=== PATIENT | female | born 1950 | race Caucasian/White ===

== ENCOUNTER 2017-05-12 11:11 | Emergency (ER) | payer MEDICAID ==
[~2017-05-12] VITALS: Ht 167.6 cm; Wt 77.1 kg
[~2017-05-12 11:11] MED LIST: CEPHALEXIN500 MG ORAL; IBUPROFEN400 MG ORAL
[2017-05-12] MEDS ORDERED: Morphine Sulfate 4mg/ml Inj IM ONE (12:30)
[2017-05-12] MEDS ORDERED: IBUPROFEN600 MG ORAL (12:51)
[2017-05-12] MEDS ORDERED: KEFLEX500 MG ORAL (12:51)
[2017-05-12 13:30] VITALS: BP 135/77
--- NOTE | 2017-05-12 13:54 | Emergency Room Report ---
History of Present Illness General Chief Complaint: Pain Source: Patient Present Illness HPI Patient had recent surgery on the left knee She's not quite sure of the exact procedure however there was an incision And the patient had multiple booker in place Patient saw her surgeon yesterday had booker removed While walking in the grocery she noticed increased pain and tightening of her calf and swelling of her knee denies any fall or trauma Denies any pelvic pain or upper leg discomfort denies and shortness of breath Patient does have increased pain in that knee and the lower leg 09/10 pressure- like Allergies: Coded Allergies: No Known Allergies (Unverified , 06/12/16) Patient History Past Medical History: see triage record Pertinent Family History: none Reviewed Nursing Documentation: PMH: Agreed, PSxH: Agreed Nursing Documentation-PMH Hx Hypertension: Yes Review of Systems All Other Systems: negative except mentioned in HPI Physical Exam Vital Signs Date Time Temp Pulse Resp B/P (MAP) Pulse Ox O2 Delivery O2 Flow Rate FiO2 05/12/17 11:17 98.2 104 18 132/69 99 Room Air Sp02 EP Interpretation: reviewed, normal General Appearance: well appearing, no apparent distress Head: normocephalic, atraumatic Eyes: bilateral eye PERRL, bilateral eye EOMI ENT: hearing grossly normal, normal pharynx, TMs + canals normal, uvula midline Neck: full range of motion, supple, no meningismus, no bony tend Respiratory: lungs clear, normal breath sounds, no rhonchi, no respiratory distress, no retraction, no accessory muscle use Cardiovascular #1: normal peripheral pulses, regular rate, rhythm, no gallop, no JVD, no murmur Gastrointestinal: normal bowel sounds, non tender, soft, no mass, no organomegaly, non-distended, no guarding, no hernia, no pulsatile mass, no rebound Genitourinary: no CVA tenderness Musculoskeletal: other - There is some swelling on the left knee compared to her right, this does involve the cath as well, patient is neurovascularly intact , there are Steri-Strips in place in the midline above the knee to down below the knee very mild erythema is noted no other fluctuance, patient is mildly tender on palpation posteriorly Neurologic: oriented x3, responsive, cross country coach III-XII nml as tested, sensory intact Psychiatric: mood/affect normal Skin: other - as above Lymphatic: normal inspection, no adenopathy Medical Decision Making Diagnostic Impression: Primary Impression: knee pain Additional Impression: bakers cyst ER Course Mobile differentials including but not limited to infectious, venous pathology entertained Ultrasound shows questionable cyst raising question of possible Mathis's cyst no obvious DVT otherwise Patient is given reassurance with the findings has done better with pain control I did initiate antibiotics for the possibility of early infection And the patient will see her specialist tomorrow , CT/MRI/US Diagnostic Results CT/MRI/US Diagnostic Results : Impression Venous ultrasound: No DVT, complex cyst Last Vital Signs Date Time Temp Pulse Resp B/P (MAP) Pulse Ox O2 Delivery O2 Flow Rate FiO2 05/12/17 13:30 98.2 87 17 135/77 100 Room Air Status: improved Disposition: HOME, SELF-CARE Condition: Improved Scripts Cephalexin* (KEFLEX*) 500 Mg Capsule 500 MG ORAL Q6H, #28 CAP 0 Refills Prov: BAKARI GOLDSTEIN D.O. 05/12/17 Ibuprofen* (MOTRIN*) 600 Mg Tablet 600 MG ORAL Q8H Y for For Pain, #20 TAB 0 Refills Prov: BAKARI GOLDSTEIN D.O. 05/12/17 Referrals: NOT CHOSEN IPA/MD,REFERRING Patient Instructions: Knee Pain, [id number], Mathis Cyst Additional Instructions: Patient is provided with the discharge instructions notified to follow up with primary doctor in the next 2-3 days otherwise return to the er with any worsening symptoms. Please note that this report is being documented using [employer] technology. This can lead to erroneous entry secondary to incorrect interpretation by the dictating instrument. BAKARI GOLDSTEIN D.O. May 12, 2017 13:54
--- NOTE | 2017-05-13 14:09 | Diagnostic Imaging Report ---
APPROVED REPORT CPT Code: 35007 Present Symptoms Comments: Post Knee Op LEFT LEG: Venous imaging reveals a patent deep venous system. There is no evidence of thrombus within the femoral, popliteal or tibial segments. The greater saphenous vein is also within normal limits. Doppler indicates normal spontaneous flow within these segments. Incidental finding: Cystic structure noted in the left popliteal area measuring (2.9 cm x 0.7 cm).
--- NOTE | 2017-05-13 14:09 | Diagnostic Imaging Report ---
APPROVED REPORT CPT Code: 28493 Present Symptoms Comments: Post Knee Op LEFT LEG: Venous imaging reveals a patent deep venous system. There is no evidence of thrombus within the femoral, popliteal or tibial segments. The greater saphenous vein is also within normal limits. Doppler indicates normal spontaneous flow within these segments. Incidental finding: Cystic structure noted in the left popliteal area measuring (2.9 cm x 0.7 cm).
--- NOTE | 2017-05-13 14:09 | Diagnostic Imaging Report ---
APPROVED REPORT CPT Code: 53330 Present Symptoms Comments: Post Knee Op LEFT LEG: Venous imaging reveals a patent deep venous system. There is no evidence of thrombus within the femoral, popliteal or tibial segments. The greater saphenous vein is also within normal limits. Doppler indicates normal spontaneous flow within these segments. Incidental finding: Cystic structure noted in the left popliteal area measuring (2.9 cm x 0.7 cm).
== END 2017-05-12 13:30 | disposition home or self-care (01) ==
LOC: EMR 11:39
DX: M25.562 Pain in left knee (principal); M71.22 Synovial cyst of popliteal space [Baker], left knee; I10 Essential (primary) hypertension
CPT/HCPCS: 93971; 96372; 99284; J2270

== ENCOUNTER 2017-05-19 21:13 | Emergency (ER) | payer MEDICAID ==
[~2017-05-19] VITALS: Ht 167.6 cm; Wt 77.1 kg
[~2017-05-19 21:13] MED LIST changes: +IBUPROFEN600 MG ORAL; +KEFLEX500 MG ORAL
[2017-05-19] MEDS ORDERED: Bacitracin Oint UD TOPIC ONE (23:15)
[2017-05-19] MEDS ORDERED: IBUPROFEN600 MG ORAL (23:30)
[2017-05-19] MEDS ORDERED: KEFLEX500 MG ORAL (23:30)
--- NOTE | 2017-05-19 23:30 | Emergency Room Report ---
History of Present Illness General Chief Complaint: Lower Extremity Injury Source: Patient Present Illness HPI This is a 66-year-old female with recent left knee replacement done last month. She was here on the for cellulitis at the booker were removed. She received antibiotics and ibuprofen. She was doing well until tonight. She was walking at home and slipped and fell and landed on her left knee. The skin open up at the distal end. He was scant bleeding. Patient was able to walk 3 blocks here. Pain is 6/10. Worse with walking. No nausea no vomiting. No other injury. No syncopal events. Allergies: Coded Allergies: No Known Allergies (Unverified , 06/12/16) Patient History Past Medical History: see triage record, old chart reviewed Past Surgical History: other Pertinent Family History: none Social History: Denies: smoking Now: No Immunizations: other Reviewed Nursing Documentation: PMH: Agreed, PSxH: Agreed Nursing Documentation-PMH Hx Hypertension: Yes Review of Systems Eye: Denies: eye pain, blurred vision ENT: Denies: ear pain, nose congestion, throat swelling Respiratory: Denies: cough, shortness of breath Cardiovascular: Denies: chest pain, palpitations Gastrointestinal: Denies: abdominal pain, diarrhea, nausea, vomiting Musculoskeletal: Reports: joint pain, Denies: back pain Skin: Denies: rash Neurological: Denies: headache, numbness Endocrine: Denies: increased thirst, increased urine Hematologic/Lymphatic: Denies: easy bruising All Other Systems: negative except mentioned in HPI Physical Exam Vital Signs Date Time Temp Pulse Resp B/P (MAP) Pulse Ox O2 Delivery O2 Flow Rate FiO2 05/19/17 21:48 98.8 92 16 148/83 95 Room Air vitals normal Sp02 EP Interpretation: reviewed, normal General Appearance: well appearing, no apparent distress, alert Head: normocephalic, atraumatic Eyes: bilateral eye PERRL, bilateral eye EOMI ENT: hearing grossly normal, normal pharynx Neck: full range of motion, supple, no meningismus Respiratory: chest non-tender, lungs clear, normal breath sounds Cardiovascular #1: regular rate, rhythm, no murmur Gastrointestinal: normal bowel sounds, non tender, no mass, no organomegaly, no bruit, non-distended Musculoskeletal: back normal, gait/station normal, normal range of motion, other - Left knee: There is wound dehiscence of 2 cm on the inferior aspect. Can't bleeding. No redness. Full range of motion. Psychiatric: mood/affect normal Skin: warm/dry Procedures Laceration/Wound Repair Laceration/Wound Repair : Consent: Verbal Wound Location: lower extremity Wound's Depth, Shape: linear Wound Length (cm): 2 Wound Explored: clean Irrigated w/ Saline (ccs): 500 Betadine Prep?: Yes Anesthesia: 1% Lidocaine Volume Anesthetic (ccs): 2 Wound Repaired With: sutures Suture Size/Type: 3:0, proline Number of Sutures: 3 Sterile Dressing Applied?: Yes Patient Tolerated: Well Complications: None Medical Decision Making Diagnostic Impression: Primary Impression: Laceration ER Course Patient with a laceration secondary to wound dehiscence from a fall. No evidence of infection. We'll discharge home. Other X-Ray Diagnostic Results Other X-Ray Diagnostic Results : X-Ray ordered: Left knee x-rays # of Views/Limited Vs Complete: 3 View Indication: Pain EP Interpretation: Yes Interpretation: no dislocation, no soft tissue swelling, no fractures Impression: No acute disease Electronically Signed by: Allyssa Meza MD Last Vital Signs Date Time Temp Pulse Resp B/P (MAP) Pulse Ox O2 Delivery O2 Flow Rate FiO2 05/19/17 21:48 98.8 92 16 148/83 95 Room Air Status: improved Disposition: HOME, SELF-CARE Condition: Stable Scripts Ibuprofen* (MOTRIN*) 600 Mg Tablet 600 MG ORAL Q8H Y for For Pain, #30 TAB 0 Refills Prov: ALLYSSA MEZA M.D. 05/19/17 Cephalexin* (KEFLEX*) 500 Mg Capsule 500 MG ORAL TID, #21 CAP 0 Refills Prov: ALLYSSA MEZA M.D. 05/19/17 Additional Instructions: Followup your orthopedic doctor in 7-14 days for suture out in 14 days. Return if symptom worsen. ALLYSSA MEZA M.D. May 19, 2017 23:30
[2017-05-19 23:36] VITALS: BP 148/83
--- NOTE | 2017-05-20 09:59 | Diagnostic Imaging Report ---
Indications: TRAUMA, status post fall Technique: Three views of the left knee Comparison: None Findings: No acute fractures. No dislocations. Joint spaces are preserved. No radiopaque foreign body. Normal mineralization. There is question with a small suprapatellar effusion. There is a medial hemiarthroplasty prosthesis which appears well aligned Impression: Possible small effusion. Correlate with clinical findings No acute process otherwise
== END 2017-05-19 23:36 | disposition home or self-care (01) ==
LOC: EMR 22:05
DX: S81.012A Laceration without foreign body, left knee, initial encounter (principal); T81.30XA Disruption of wound, unspecified, initial encounter; W01.0XXA Fall on same level from slipping, tripping and stumbling without subsequent striking against object, initial encounter; Y92.019 Unspecified place in single-family (private) house as the place of occurrence of the external cause; I10 Essential (primary) hypertension
CPT/HCPCS: 12001; 73564; 99284; Z7502

== ENCOUNTER 2017-06-10 15:12 | Emergency (ER) | payer MEDICARE, MEDICAID ==
[~2017-06-10] VITALS: Ht 167.6 cm; Wt 83.0 kg
[2017-06-10 15:42] VITALS: BP 172/102
[2017-06-10] MEDS ORDERED: Bacitracin Oint UD TOPIC ONE (16:00)
[2017-06-10 16:13] VITALS: BP 172/102
--- NOTE | 2017-06-10 16:30 | Emergency Room Report ---
History of Present Illness General Chief Complaint: Wound Recheck/Suture Removal Source: Patient Present Illness [facility] The patient is a 66-year-old female presenting for suture removal. She had a total knee replacement in April and then presented to this emergency department in May for wound opening of the surgical sites. 3 sutures were placed. Patient was also given antibiotics which she has taken. She denies any complications. Pain to the area is a 5/10 dull ache and is better with Tylenol and Motrin. She states that she does not want to followup with her surgeon. She denies any other complaints including nausea, vomiting, fever, chills, rash, wound discharge or bleeding, numbness or tingling Allergies: Coded Allergies: No Known Allergies (Unverified , 06/12/16) Patient History Past Medical History: see triage record Pertinent Family History: none Reviewed Nursing Documentation: PMH: Agreed, PSxH: Agreed Nursing Documentation-PMH Past Medical History: No History, Except For Hx Cardiac Problems: No - head injury Hx Hypertension: Yes Review of Systems All Other Systems: negative except mentioned in HPI Physical Exam Vital Signs Date Time Temp Pulse Resp B/P (MAP) Pulse Ox O2 Delivery O2 Flow Rate FiO2 06/10/17 15:23 98.4 92 18 172/102 98 Room Air Sp02 EP Interpretation: reviewed, normal General Appearance: no apparent distress, alert, GCS 15, non-toxic Head: normocephalic, atraumatic Eyes: bilateral eye normal inspection, bilateral eye PERRL ENT: hearing grossly normal, normal pharynx, no angioedema, normal voice Neck: full range of motion, supple/symm/no masses Respiratory: no accessory muscle use, speaking full sentences Cardiovascular #1: no edema Musculoskeletal: no calf tenderness, swelling - L knee, tender - L anterior knee Neurologic: alert, oriented x3, responsive, motor strength/tone normal, sensory intact, speech normal Psychiatric: judgement/insight normal, memory normal, mood/affect normal, no suicidal/homicidal ideation Skin: laceration - L knee midline surgical scar is well healed. Medical Decision Making PA Attestation Dr. Pathak is my supervising physician. Patient management was discussed with my supervising physician Diagnostic Impression: Primary Impression: Visit for wound check Additional Impression: Encounter for removal of sutures ER Course The patient is a 66-year-old female presenting for suture removal Differential diagnosis considered: Wound infection, dehiscence, nonhealing wound , cellulitis, abscess Physical exam: Afebrile. No apparent distress Left knee has a midline surgical incision which is well-healed. No surrounding erythema. Well approximated. No erythema Suture removal: 3 simple interrupted sutures were removed without complication. No bleeding or discharge. Wound is well approximated. No surrounding erythema. Bacitracin was applied with dressing. She'll be discharged home and should follow up with her surgeon as soon as possible. ER precautions are given Last Vital Signs Date Time Temp Pulse Resp B/P (MAP) Pulse Ox O2 Delivery O2 Flow Rate FiO2 06/10/17 16:13 98.4 18 172/102 98 Room Air 06/10/17 15:23 92 Status: improved Disposition: HOME, SELF-CARE Condition: Improved Patient Instructions: Wound Check, Suture Removal, Care After Additional Instructions: I discussed my findings with the patient. All questions and concerns have been answered. Treatment and medication compliance have been addressed. Please follow up with your surgeon and primary doctor. Return to ED if symptoms worsen , new symptoms arise, or if needed for any reason. Patient verbalized understanding of discharge instructions. FRANKLIN ORDONEZ Jun 10, 2017 16:30
== END 2017-06-10 16:15 | disposition home or self-care (01) ==
LOC: EMR 15:49
DX: S81.012D Laceration without foreign body, left knee, subsequent encounter (principal); X58.XXXD Exposure to other specified factors, subsequent encounter; Z48.02 Encounter for removal of sutures; Z96.652 Presence of left artificial knee joint; I10 Essential (primary) hypertension
CPT/HCPCS: 99281